=== PATIENT | male | born 1990 | race African-American/Black ===

== ENCOUNTER → 2017-04-20 | Day surgery (SDC) | payer OTHER ==
[~2017-04-20] MED LIST: BACITRACIN OINT 30GM As Ordered; KETOROLAC 30 MG/ML VIAL (J1885) IV; KETOROLAC 60 MG/2 ML VIAL (J1885) As Ordered; LIDOCAINE 1% MDV 20ML VIAL SQ; LIDOCAINE 2% INJ 100 MG/5 ML SDV (FOR ANES.) As Ordered; LIDOCAINE 2% W/ EPINEPHRINE 1.7 ML DENTAL INJ As Ordered; LR 1,000 ML IV; MEPERIDINE INJ 25 MG/ML VIAL (J2175) As Ordered; MIDAZOLAM INJ 2 MG/2 ML VIAL (J2250) As Ordered; ONDANSETRON 4MG/2ML VIAL (J2405) IV; PERCOCET 5MG/325MG TAB PO; PROPOFOL 200 MG/20 ML VIAL As Ordered; fentaNYL 100 MCG/2 ML INJECTION (J3010) As Ordered; fentaNYL 100 MCG/2 ML INJECTION (J3010) IV
[2017-04-20] MEDS: MEPERIDINE INJ 25 MG/ML VIAL (J2175) IV ×2 (12:40→12:45)
[2017-04-20] MEDS: PERCOCET 5MG/325MG TAB PO (13:40)
== END | disposition home or self-care (01) ==
LOC: M SDC 08:37
DX: N47.1 Phimosis (principal); F41.9 Anxiety disorder, unspecified; F32.9 Major depressive disorder, single episode, unspecified; Z79.899 Other long term (current) drug therapy; Z72.0 Tobacco use
CPT/HCPCS: 54161